=== PATIENT | male | born 1960 | race Caucasian/White ===

== ENCOUNTER 2017-10-30 23:36 | Emergency (ER) | payer SELFPAY ==
--- NOTE | 2017-10-31 00:37 | EDPHY ---
H & P Stated Complaint: jaden Source: Patient, EMS Exam Limitations: Intoxication - Personal History Current Tetanus/Diphtheria Vaccine: Unsure Current Tetanus Diphtheria and Acellular Pertussis (TDAP): Unsure - Medical/Surgical History Hx Asthma: No Hx Chronic Respiratory Disease: No Hx Diabetes: No Hx Cardiac Disease: No Hx Renal Disease: No Hx Cirrhosis: No Hx Alcoholism: No Hx HIV/AIDS: No Hx Splenectomy or Spleen Trauma: No Other PMH: etoh ABUSE - Social History Smoking Status: Current every day smoker Time Seen by Provider: 10/31/17 00:28 HPI/ROS: HPI The patient presents brought in by ambulance on M1 hold from [facility] where he was being evaluated. The patient was at [facility] and then began to exhibit some concerning behavior and speaking nonsensically. He then went over to [facility] for evaluation. 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 He said he has not slept for 7 days. He was placed on a hold for grave disability due to his jaden. He does have an underlying history of bipolar disorder. His alcohol level at [facility] was 0.159. REVIEW OF SYSTEMS Constitutional: No fever, no chills. Eyes: No discharge. ENT: No sore throat. Cardiovascular: No chest pain, no palpitations. Respiratory: No cough, no shortness of breath. Gastrointestinal: No abdominal pain, no vomiting. Genitourinary: No hematuria. Musculoskeletal: No back pain. Skin: No rashes. Neurological: No headache. PMHx: Bipolar disorder Soc Hx: Alcohol abuse PHYSICAL General Appearance: Alert, no distress Eyes: Pupils equal and round no pallor or injection ENT, Mouth: Mucous membranes moist Respiratory: There are no retractions, lungs are clear to auscultation Cardiovascular: Regular rate and rhythm Gastrointestinal: Abdomen is soft and non-tender, no masses, bowel sounds normal Neurological: A&O, moves all extremities Skin: Warm and dry, no rashes Musculoskeletal: Neck is supple non tender Extremities: symmetrical, full range of motion Psychiatric: Patient is oriented X 3, there is no agitation (RiguzziSmita) Constitutional: Initial Vital Signs Temperature (C) 36.6 C 10/30/17 23:40 Heart Rate 96 10/30/17 23:40 Respiratory Rate 16 10/30/17 23:40 Blood Pressure 101/62 10/30/17 23:40 O2 Sat (%) 94 10/30/17 23:40 O2 Delivery Mode Room Air Allergies/Adverse Reactions: No Known Allergies Allergy (Unverified 10/30/17 23:44) Medical Decision Making ED Course/Re-evaluation: 7:00 a.m.-I assumed care of this patient at shift change. He presents with acute jaden and is on an M1 hold. Plan for mental health evaluation this morning. 10:00 a.m.-this patient was seen by mental health and felt appropriate for outpatient treatment of bipolar disorder and alcohol abuse. He is currently calm and cooperative. No suicidal or homicidal ideation. I feel that he is safe and stable for discharge home. (Seema Berry) Differential Diagnosis: This is a 57-year-old male with history of bipolar disorder and alcohol use, new to our emergency department who presents on an M1 hold for [facility] for grave disability related to jaden. Upon arrival he has pressured speech is somewhat agitated. After about 30 min in the emergency department he fell asleep. Plan for basic labs, mental health evaluation. Differential diagnosis includes polysubstance abuse, alcohol intoxication, bipolar disorder with jaden. In the emergency department, labs were checked and did reveal alcohol intoxication. UA was positive for marijuana. He slept for most of his time here. At 7:00 a.m., the case will be signed out to the oncoming provider. The patient has begun his mental health evaluation at this time. (Smita Lindsey) - Data Points Laboratory Results: Laboratory Results 10/30/17 23:45 10/30/17 23:45 10/30/17 10/30/17 10/30/17 23:45 23:45 23:45 WBC 10.11 10^3/uL H 10^3/uL (3.80-9.50) RBC 3.92 10^6/uL L 10^6/uL (4.40-6.38) Hgb 12.4 g/dL L g/dL (13.7-17.5) Hct 36.3 % L % (40.0-51.0) MCV 92.6 fL fL (81.5-99.8) MCH 31.6 pg pg (27.9-34.1) MCHC 34.2 g/dL g/dL (32.4-36.7) RDW 13.3 % % (11.5-15.2) Plt Count 412 10^3/uL H 10^3/uL (150-400) MPV 8.7 fL fL (8.7-11.7) Neut % (Auto) 57.3 % % (39.3-74.2) Lymph % (Auto) 33.2 % % (15.0-45.0) Lawrence % (Auto) 5.9 % % (4.5-13.0) Eos % (Auto) 2.6 % % (0.6-7.6) Baso % (Auto) 0.4 % % (0.3-1.7) Nucleat RBC Rel Count 0.0 % % (0.0-0.2) Absolute Neuts (auto) 5.79 10^3/uL 10^3/uL (1.70-6.50) Absolute Lymphs (auto) 3.36 10^3/uL H 10^3/uL (1.00-3.00) Absolute Monos (auto) 0.60 10^3/uL 10^3/uL (0.30-0.80) Absolute Eos (auto) 0.26 10^3/uL 10^3/uL (0.03-0.40) Absolute Basos (auto) 0.04 10^3/uL 10^3/uL (0.02-0.10) Absolute Nucleated RBC 0.00 10^3/uL 10^3/uL (0-0.01) Immature Gran % 0.6 % % (0.0-1.1) Immature Gran # 0.06 10^3/uL 10^3/uL (0.00-0.10) Sodium 146 mEq/L H mEq/L (135-145) Potassium 4.9 mEq/L mEq/L (3.3-5.0) Chloride 110 mEq/L mEq/L (97-110) Carbon Dioxide 21 mEq/l L mEq/l (22-31) Anion Gap 15 mEq/L mEq/L (8-16) BUN 13 mg/dL mg/dL (7-23) Creatinine 0.9 mg/dL mg/dL (0.7-1.3) Estimated GFR > 60 Glucose 90 mg/dL mg/dL (70-100) Calcium 8.4 mg/dL L mg/dL (8.5-10.4) Total Bilirubin 0.3 mg/dL mg/dL (0.1-1.4) AST 28 IU/L IU/L (17-59) ALT 27 IU/L IU/L (21-72) Alkaline Phosphatase 83 IU/L IU/L (38-126) Total Protein 6.9 g/dL g/dL (6.3-8.2) Albumin 3.8 g/dL g/dL (3.5-5.0) Urine Opiates Screen NEGATIVE (NEGATIVE) Urine Barbiturates NEGATIVE (NEGATIVE) Ur Phencyclidine Scrn NEGATIVE (NEGATIVE) Ur Amphetamine Screen NEGATIVE (NEGATIVE) U Benzodiazepines Scrn NEGATIVE (NEGATIVE) Urine Cocaine Screen NEGATIVE (NEGATIVE) U Marijuana (THC) Screen NON-NEGATIVE H (NEGATIVE) Ethyl Alcohol 179 mg/dL H mg/dL (0-10) Medications Given: Discontinued Medications Ibuprofen (Motrin) 600 mg PO EDNOW ONE Stop: 10/31/17 08:54 Last Admin: 10/31/17 08:59 Dose: 600 mg Departure - Departure Disposition: Home, Routine, Self-Care Clinical Impression: Bipolar 1 disorder, manic, mild Alcohol intoxication Qualifiers: Complication of substance-induced condition: with delirium Qualified Code(s): F10.921 - Alcohol use, unspecified with intoxication delirium Condition: Good Instructions: Bipolar Disorder (ED), At-Risk Alcohol Use (ED) Referrals: [facility],. [Clinic] - As per Instructions
[2017-10-31 01:04] LABS: PLATELET COUNT 412 10^3/uL (150-400)
[2017-10-31 08:42] VITALS: BP 165/86
[2017-10-31] MEDS ORDERED: IBUPROFEN 600 MG TAB PO ONE (08:53)
== END 2017-10-31 10:30 | disposition home or self-care (01) ==
DX: F31.9 Bipolar disorder, unspecified (principal); F10.921 Alcohol use, unspecified with intoxication delirium; F17.200 Nicotine dependence, unspecified, uncomplicated
CPT/HCPCS: 80305; G0480